=== PATIENT | male | born 1955 | race African-American/Black ===

== ENCOUNTER 2016-08-17 02:20 | Inpatient (IN) | payer MEDICAID ==
[~2016-08-17] VITALS: Ht 170.2 cm; Wt 52.8 kg
[2016-08-17] VITALS (26 sets, daily range): BP systolic 94–140; BP diastolic 27–91
[2016-08-17 03:17] LABS: CONDITION Y; DEFINITIVE SEE PRINTOUT; Mean Corpuscular Hemoglobin 37.6 pg (28.0-32.0); Mean Corpuscular Hgb Conc. 33.5 g/dL (32.0-36.0); Mean Corpuscular Volume 112.4 fL (80.0-100.0); Mean Platelet Volume 11.7 fL (7.4-10.4); SUSPECT SEE PRINTOUT
[2016-08-17 03:21] LABS: Red Cell Distribution Width 27.6 % (11.6-16.0)
[2016-08-17 03:23] LABS: Hemoglobin 4.4 g/dL (13.5-17.5); Platelet Count (auto) 5 10^3/uL (140-450)
[2016-08-17 03:24] LABS: Metamyelocytes % 0; Promyelocytes % 0; Reactive Lymphocytes 0
[2016-08-17 03:28] LABS: Chloride 106 mmol/L (98-107); Potassium 5.3 mmol/L (3.5-5.1); Sodium 144 mmol/L (136-145)
[2016-08-17 03:41] LABS: Myelocytes % 1
[2016-08-17 03:43] LABS: Anisocytosis Marked; Hypersegmented Neutrophils Present; Large Platelets FEW; Platelet Estimate Marked
[2016-08-17 03:44] LABS: Burr Cells FEW; Macrocytosis Marked; Ovalocytes FEW; Schistocytes FEW
[2016-08-17 03:48] LABS: Albumin 2.3 g/dL (3.4-5.0); Anion Gap 20 (5-15); BUN/Creatinine Ratio 22.9; Blood Urea Nitrogen 58 mg/dL (7-18); Carbon Dioxide 18 mmol/L (21-32); GFR African American 33 mL/min; GFR Non-African American 27 mL/min; Glucose 107 mg/dL (74-106)
[2016-08-17 03:55] LABS: Alkaline Phosphatase 105 U/L (45-117); Bilirubin, Total 0.9 mg/dL (0.2-1.0); Total Protein 6.3 g/dL (6.4-8.2)
[2016-08-17 03:57] LABS: Aspartate Aminotransferase 1108 U/L (15-37)
[2016-08-17 04:26] LABS: Amylase 128 U/L (25-115)
[2016-08-17 04:44] LABS: Lactic Acid w/Reflex 5.2 mmol/L (0.4-2.0)
[2016-08-17 04:47] LABS: Urine Bilirubin Negative (Negative); Urine Color Yellow (Yellow); Urine Glucose Normal (Normal); Urine Hyaline Cast FEW /lpf (0 - 2); Urine Ketone TRACE (Negative); Urine Mucus FEW (None Seen); Urine Nitrite Negative (Negative); Urine RBC 9 /hpf (0 - 3); Urine Squamous Epithelial Cell FEW /hpf (<5); Urine Urobilinogen Normal (Negative); Urine pH 5.5 (5.0-8.0)
[2016-08-17 04:51] LABS: Urine Blood 2+ /uL (Negative)
[2016-08-17] MEDS ORDERED: cefTRIAXone 1GM/50ML D5W 50 ML IV ONE (05:15)
[2016-08-17] MEDS ORDERED: NOREPINEPHRINE BITARTRATE 250 ML IV SCH (05:15)
[2016-08-17] MEDS ORDERED: SODIUM CHLORIDE 0.9% 1,000 ML IV ONE (05:15)
[2016-08-17] MEDS ORDERED: FUROSEMIDE 20 MG/2 ML VIAL IV ONE (05:15)
[2016-08-17 05:17] LABS: REFLEX LACTIC ACID YES OR NO YES
[2016-08-17] MEDS ORDERED: PIPERACILLIN-TAZOB 3.375GM 100 ML IV ONE (07:00)
[2016-08-17] MEDS ORDERED: SODIUM CHLORIDE 0.9% 500 ML IV ONE (07:00)
[2016-08-17 07:24] LABS: Allen Test Yes; Base Excess -2.9 mmol/L (-2.0-2.0); Blood 02Sat 94.3 % (96-100); Blood MetHb 0.3 % (0.0-1.5); HCO3 23.2 mmol/L (22-26.0); HHb 5.6 % (0.0-5.0); MODE NASAL CANNULA; O2Hb 92.1 % (94.0-97.0); PCO2 48.9 mmHg (35.0-45.0); PCO2(T) 48.9 mmHg (35.0-45.0); PO2 99.4 mmHg (80.0-100.0); PO2(T) 99.4 mmHg (80.0-100.0); Sample Type Arterial; pH 7.294 (7.350-7.450)
[2016-08-17 08:49] LABS: B-Type Natriuretic Peptide 1048.78 pg/mL (0-100)
[2016-08-17 08:50] LABS: Temperature: 24.3 C (20.0-25.0)
[2016-08-17] MEDS: NOREPINEPHRINE BITARTRATE 250 ML IV SCH (09:00)
[2016-08-17] MEDS ORDERED: VANCOMYCIN PER PHARMACY 0 MG IV SCH (09:00)
[2016-08-17] MEDS ORDERED: NITROGLYCERIN 0.4 MG SL TAB SL PRN (09:15)
[2016-08-17] MEDS ORDERED: MORPHINE SULF INJ 2 MG/ML SYRINGE 1ML IV PRN (09:15)
[2016-08-17] MEDS: SODIUM CHLORIDE 0.9% 1,000 ML IV SCH (09:38)
[2016-08-17] MEDS ORDERED: ENOXAPARIN SOD 30 MG/0.3 ML SYRINGE SC SCH (10:00)
[2016-08-17] MEDS ORDERED: ENOXAPARIN SOD 40 MG/0.4 ML SYRINGE SC SCH (10:00)
[2016-08-17] MEDS ORDERED: VANCOMYCIN 1GM/250ML D5W 250 ML IV ONE (10:00)
[2016-08-17 22:09] LABS: Basophils # (auto) 0 uL; Basophils % (auto) 0.1 % (0.0-2.0); CONDITION Y; Eosinophils # (auto) 0 uL; Hematocrit 32.3 % (41.0-53.0); Hemoglobin 11.1 g/dL (13.5-17.5); Lymphocytes # (auto) 0.3 uL; Lymphocytes % (auto) 14.3 % (10.0-50.0); Mean Corpuscular Hemoglobin 33.2 pg (28.0-32.0); Mean Corpuscular Hgb Conc. 34.5 g/dL (32.0-36.0); Mean Corpuscular Volume 96.2 fL (80.0-100.0); Mean Platelet Volume 7.6 fL (7.4-10.4); Monocytes # (auto) 0.1 uL; Monocytes % (auto) 3.1 % (0.0-12.0); Neutrophils % (auto) 82.5 % (37.0-80.0); Nucleated Red Blood Cells % 2.7 %; Platelet Count (auto) 190 10^3/uL (140-450); SUSPECT SEE PRINTOUT; White Blood Cell 2.4 10^3/uL (4.4-10.8)
[2016-08-17] MEDS: MORPHINE SULF INJ 2 MG/ML SYRINGE 1ML IV PRN (22:13)
[2016-08-17] MEDS: ONDANSETRON HCL 4 MG/2 ML VIAL IV PRN (22:14)
[2016-08-18] VITALS (26 sets, daily range): BP systolic 97–155; BP diastolic 50–94
[2016-08-18] MEDS: SODIUM CHLORIDE 0.9% 1,000 ML IV SCH ×2 (01:56→19:04)
[2016-08-18 04:06] LABS: CONDITION Y; Hematocrit 32.7 % (41.0-53.0); Hemoglobin 11.3 g/dL (13.5-17.5); Mean Corpuscular Hgb Conc. 34.5 g/dL (32.0-36.0); Mean Corpuscular Volume 95.6 fL (80.0-100.0); Mean Platelet Volume 8.2 fL (7.4-10.4); Platelet Count (auto) 169 10^3/uL (140-450); Red Cell Distribution Width 17.4 % (11.6-16.0); SUSPECT SEE PRINTOUT; White Blood Cell 2.6 10^3/uL (4.4-10.8)
[2016-08-18 04:17] LABS: Metamyelocytes % 0; Myelocytes % 0; Promyelocytes % 0; Reactive Lymphocytes 0
[2016-08-18 04:27] LABS: Albumin 2.3 g/dL (3.4-5.0); BUN/Creatinine Ratio 27.4; Calcium 6.9 mg/dL (8.5-10.1); Potassium 4.3 mmol/L (3.5-5.1)
[2016-08-18 04:30] LABS: Bilirubin, Total 1.8 mg/dL (0.2-1.0); Total Protein 6.3 g/dL (6.4-8.2)
[2016-08-18 05:02] LABS: Hypersegmented Neutrophils Present; Large Platelets FEW; Platelet Estimate Adequa
[2016-08-18 05:03] LABS: Anisocytosis Marked; Macrocytosis Moderate
[2016-08-18] MEDS: cefTRIAXone 1GM/50ML D5W 50 ML IV SCH (05:08)
[2016-08-18] MEDS: MORPHINE SULF INJ 2 MG/ML SYRINGE 1ML IV PRN (06:04)
[2016-08-18] MEDS: ONDANSETRON HCL 4 MG/2 ML VIAL IV PRN (06:04)
[2016-08-18] MEDS: NOREPINEPHRINE BITARTRATE 250 ML IV SCH (09:00)
[2016-08-18] MEDS ORDERED: VANCOMYCIN 750 MG in D5W 5% 250 ML IV SCH (10:00)
[2016-08-18] MEDS ORDERED: GASTROGRAFIN 120 ML SOL ONE (15:34)
[2016-08-18] MEDS ORDERED: HALOPERIDOL LACTATE 5 MG/ML INJ VIAL IM ONE (22:00)
[2016-08-19] MEDS: cefTRIAXone 1GM/50ML D5W 50 ML IV SCH (04:31)
[2016-08-19 05:00] VITALS: BP 110/67
[2016-08-19 06:42] LABS: Basophils # (auto) 0 uL; Basophils % (auto) 0.3 % (0.0-2.0); CONDITION Y; Eosinophils # (auto) 0 uL; Eosinophils % (auto) 0.2 % (0.0-7.0); Hematocrit 35.7 % (41.0-53.0); Hemoglobin 12.1 g/dL (13.5-17.5); INR 1.49 (0.9-1.15); Lymphocytes # (auto) 0.8 uL; Lymphocytes % (auto) 32.2 % (10.0-50.0); Mean Corpuscular Hemoglobin 33.1 pg (28.0-32.0); Mean Corpuscular Hgb Conc. 33.8 g/dL (32.0-36.0); Mean Corpuscular Volume 97.8 fL (80.0-100.0); Mean Platelet Volume 9.1 fL (7.4-10.4); Monocytes # (auto) 0.2 uL; Monocytes % (auto) 6.7 % (0.0-12.0); Neutrophils # (auto) 1.4 uL; Neutrophils % (auto) 60.6 % (37.0-80.0); Partial Thromboplastin Time 35.1 sec (22.64-33.71); SUSPECT SEE PRINTOUT; White Blood Cell 2.4 10^3/uL (4.4-10.8)
[2016-08-19 06:47] LABS: Prothrombin Time 16.3 sec (9.37-12.3)
[2016-08-19 06:50] LABS: BUN/Creatinine Ratio 28.6; Calcium 7.2 mg/dL (8.5-10.1); Magnesium 1.6 mg/dL (1.6-2.6)
[2016-08-19] MEDS: NOREPINEPHRINE BITARTRATE 250 ML IV SCH (09:00)
[2016-08-19 09:19] VITALS: BP 113/94
[2016-08-19] MEDS: SODIUM CHLORIDE 0.9% 1,000 ML IV SCH (11:12)
[2016-08-19] MEDS ORDERED: ERTAPENEM 1GM IN NS 50 ML IV ONE (11:15)
[2016-08-19 12:02] LABS: Anisocytosis Marked
[2016-08-19 12:03] LABS: Burr Cells FEW; Tear Drop Cells FEW
[2016-08-19 12:04] LABS: Large Platelets FEW; Platelet Estimate Decreased
[2016-08-19 12:27] VITALS: BP 104/64
[2016-08-19 12:28] LABS: Platelet Count (auto) 88 10^3/uL (140-450)
[2016-08-19 16:46] VITALS: BP 143/81
[2016-08-19] MEDS: MORPHINE SULF INJ 2 MG/ML SYRINGE 1ML IV PRN (20:49)
[2016-08-19] MEDS ORDERED: Fibersource Hn 1 Liter GT SCH (22:00)
[2016-08-19 22:23] VITALS: BP 109/80
[2016-08-20 06:21] VITALS: BP 115/82
[2016-08-20] MEDS: SODIUM CHLORIDE 0.9% 1,000 ML IV SCH (06:45)
[2016-08-20 09:00] VITALS: BP 118/90
[2016-08-20] MEDS: ERTAPENEM 1GM IN NS 50 ML IV SCH (09:48)
[2016-08-20 10:42] LABS: CONDITION Y; DEFINITIVE SEE PRINTOUT; Hematocrit 37.4 % (41.0-53.0); Hemoglobin 12.4 g/dL (13.5-17.5); Mean Corpuscular Hemoglobin 32.9 pg (28.0-32.0); Mean Corpuscular Hgb Conc. 33.3 g/dL (32.0-36.0); Mean Corpuscular Volume 98.7 fL (80.0-100.0); Mean Platelet Volume 9.3 fL (7.4-10.4); Platelet Count (auto) 52 10^3/uL (140-450); Red Cell Distribution Width 18.5 % (11.6-16.0); SUSPECT SEE PRINTOUT; White Blood Cell 2.9 10^3/uL (4.4-10.8)
[2016-08-20 10:51] LABS: Metamyelocytes % 0; Myelocytes % 0; Promyelocytes % 0; Reactive Lymphocytes 0
[2016-08-20 11:28] LABS: Platelet Estimate Decreased
[2016-08-20 11:29] LABS: Anisocytosis Moderate; Ovalocytes FEW
[2016-08-20 11:31] LABS: Macrocytosis Moderate
[2016-08-20 12:58] VITALS: BP 120/87
[2016-08-20 17:14] VITALS: BP 117/68
[2016-08-20 22:00] VITALS: BP 115/69
[2016-08-20 22:20] VITALS: BP 115/69
[2016-08-21] VITALS (7 sets, daily range): BP systolic 118–133; BP diastolic 58–86
[2016-08-21 07:01] LABS: CONDITION Y; DEFINITIVE SEE PRINTOUT; Hematocrit 32.4 % (41.0-53.0); Hemoglobin 10.7 g/dL (13.5-17.5); Mean Corpuscular Hemoglobin 32.5 pg (28.0-32.0); Mean Corpuscular Hgb Conc. 33.1 g/dL (32.0-36.0); Mean Corpuscular Volume 98.3 fL (80.0-100.0); Mean Platelet Volume 9.3 fL (7.4-10.4); Platelet Count (auto) 40 10^3/uL (140-450); Red Cell Distribution Width 19.3 % (11.6-16.0); SUSPECT SEE PRINTOUT; White Blood Cell 2.9 10^3/uL (4.4-10.8)
[2016-08-21 07:09] LABS: Metamyelocytes % 0; Myelocytes % 0; Promyelocytes % 0; Reactive Lymphocytes 0
[2016-08-21 07:16] LABS: BUN/Creatinine Ratio 32.2; Calcium 7.6 mg/dL (8.5-10.1); Magnesium 1.8 mg/dL (1.6-2.6); Potassium 3.7 mmol/L (3.5-5.1)
[2016-08-21 08:13] LABS: Platelet Estimate Decreased
[2016-08-21 08:14] LABS: Anisocytosis Moderate
[2016-08-21] MEDS: ERTAPENEM 1GM IN NS 50 ML IV SCH (08:58)
[2016-08-21] MEDS ORDERED: methylPREDNISolone SOD SUCC 125 MG/2 ML VL IV ONE (15:15)
[2016-08-21] MEDS ORDERED: NITROFURANTOIN (MONO) 100 mg CAP PO ONE (15:15)
[2016-08-21] MEDS: NITROFURANTOIN (MONO) 100 mg CAP PO SCH (21:45)
[2016-08-21] MEDS: methylPREDNISolone SOD SUCC 125 MG/2 ML VL IV SCH (21:45)
[2016-08-21] MEDS: PANTOPRAZOLE 40 MG TAB PO SCH (21:45)
[2016-08-22 05:50] LABS: CONDITION Y; DEFINITIVE SEE PRINTOUT; Hemoglobin 11.7 g/dL (13.5-17.5); Mean Corpuscular Hemoglobin 32.7 pg (28.0-32.0); Mean Corpuscular Hgb Conc. 33.5 g/dL (32.0-36.0); Mean Corpuscular Volume 97.7 fL (80.0-100.0); Mean Platelet Volume 9.4 fL (7.4-10.4); Platelet Count (auto) 106 10^3/uL (140-450); Red Cell Distribution Width 18.3 % (11.6-16.0); SUSPECT SEE PRINTOUT
[2016-08-22 05:56] VITALS: BP 119/83
[2016-08-22] MEDS: methylPREDNISolone SOD SUCC 125 MG/2 ML VL IV SCH ×3 (06:01→21:46)
[2016-08-22 06:49] LABS: White Blood Cell 1.8 10^3/uL (4.4-10.8)
[2016-08-22 06:50] LABS: Metamyelocytes % 0; Myelocytes % 0; Promyelocytes % 0; Reactive Lymphocytes 0
[2016-08-22 09:00] VITALS: BP 146/80
[2016-08-22 09:22] LABS: Platelet Estimate Decreased
[2016-08-22 09:23] LABS: Anisocytosis Moderate; Burr Cells FEW
[2016-08-22] MEDS: PANTOPRAZOLE 40 MG TAB PO SCH ×2 (09:37→21:46)
[2016-08-22] MEDS: NITROFURANTOIN (MONO) 100 mg CAP PO SCH ×2 (09:37→21:47)
[2016-08-22] MEDS: ONDANSETRON HCL 4 MG/2 ML VIAL IV PRN (09:48)
[2016-08-22 11:58] VITALS: BP 142/86
[2016-08-22] MEDS ORDERED: CYANOCOBALAMIN (B-12) 1000 MCG/1 ML VIAL SUBCUT ONE (16:45)
[2016-08-22] MEDS ORDERED: PHYTONADIONE (VIT K)10 MG/ML 1ML VIAL SUBCUT ONE (16:45)
[2016-08-22] MEDS ORDERED: FILGRASTIM 480 MCG INJ VIAL SC ONE (16:45)
[2016-08-22 17:00] VITALS: BP 148/93
[2016-08-22 20:00] VITALS: BP 131/87
[2016-08-22 21:33] VITALS: BP 131/87
[2016-08-23] VITALS (7 sets, daily range): BP systolic 97–132; BP diastolic 58–89
[2016-08-23] MEDS: MORPHINE SULF INJ 2 MG/ML SYRINGE 1ML IV PRN ×2 (02:17→17:46)
[2016-08-23] MEDS: methylPREDNISolone SOD SUCC 125 MG/2 ML VL IV SCH ×2 (05:40→13:51)
[2016-08-23 06:35] LABS: BUN/Creatinine Ratio 36.1; Calcium 7.4 mg/dL (8.5-10.1); Potassium 3.5 mmol/L (3.5-5.1)
[2016-08-23] MEDS ORDERED: FILGRASTIM 300 MCG INJ VIAL SC SCH (10:00)
[2016-08-23] MEDS ORDERED: PHYTONADIONE (VIT K)10 MG/ML 1ML VIAL SUBCUT SCH (10:00)
[2016-08-23] MEDS: PANTOPRAZOLE 40 MG TAB PO SCH ×2 (10:10→21:49)
[2016-08-23] MEDS: NITROFURANTOIN (MONO) 100 mg CAP PO SCH ×2 (10:10→21:49)
[2016-08-23] MEDS: CYANOCOBALAMIN (B-12) 1000 MCG/1 ML VIAL SUBCUT SCH (10:11)
[2016-08-23] MEDS ORDERED: FUROSEMIDE 20 MG/2 ML VIAL IV ONE (13:36)
[2016-08-24] MEDS: ONDANSETRON HCL 4 MG/2 ML VIAL IV PRN (00:42)
[2016-08-24] MEDS: MORPHINE SULF INJ 2 MG/ML SYRINGE 1ML IV PRN ×2 (00:47→17:53)
[2016-08-24 05:00] VITALS: BP 114/77
[2016-08-24 06:46] LABS: CONDITION Y; DEFINITIVE SEE PRINTOUT; Hematocrit 33.7 % (41.0-53.0); Hemoglobin 11.2 g/dL (13.5-17.5); Mean Corpuscular Hemoglobin 32.6 pg (28.0-32.0); Mean Corpuscular Hgb Conc. 33.4 g/dL (32.0-36.0); Mean Corpuscular Volume 97.8 fL (80.0-100.0); Mean Platelet Volume 9.5 fL (7.4-10.4); Platelet Count (auto) 64 10^3/uL (140-450); Red Cell Distribution Width 18.2 % (11.6-16.0); SUSPECT SEE PRINTOUT; White Blood Cell 14.8 10^3/uL (4.4-10.8)
[2016-08-24 07:00] LABS: INR 1.34 (0.9-1.15); Partial Thromboplastin Time 32.1 sec (22.64-33.71)
[2016-08-24 07:02] LABS: Metamyelocytes % 0; Myelocytes % 0; Promyelocytes % 0; Reactive Lymphocytes 0
[2016-08-24 07:04] LABS: Prothrombin Time 14.7 sec (9.37-12.3)
[2016-08-24 09:56] VITALS: BP 120/72
[2016-08-24] MEDS: CYANOCOBALAMIN (B-12) 1000 MCG/1 ML VIAL SUBCUT SCH (10:00)
[2016-08-24 10:08] LABS: Platelet Estimate Decreased
[2016-08-24 10:09] LABS: Burr Cells FEW
[2016-08-24 10:10] LABS: Anisocytosis Moderate; Polychromasia Slight
[2016-08-24 10:11] LABS: Tear Drop Cells FEW
[2016-08-24] MEDS ORDERED: NITR-39 PO (11:18)
[2016-08-24] MEDS ORDERED: CYAN1TAB14 PO (11:18)
[2016-08-24] MEDS ORDERED: FERR-7 PO (11:18)
[2016-08-24] MEDS ORDERED: FAM20T PO (11:18)
[2016-08-24] MEDS: NITROFURANTOIN (MONO) 100 mg CAP PO SCH (11:47)
[2016-08-24] MEDS: PANTOPRAZOLE 40 MG TAB PO SCH (11:47)
[2016-08-24 13:08] VITALS: BP 129/60
[2016-08-24 17:52] VITALS: BP 118/79
== END 2016-08-24 20:22 | disposition home or self-care (01) | DRG 720 ==
LOC: ER 02:20 → TELE 02:21 → ICU WEST 08-18 10:20 → TELE-EAST 08-18 16:50 → TELE-CENTR 08-19 05:40
PROVIDERS: ADMIT Internal Medicine; ATTEND Internal Medicine
PROC: 0W993ZZ Drainage of Right Pleural Cavity, Percutaneous Approach (ICD-10-PCS; principal; 2016-08-17)
PROC: 30233R1 Transfusion of Nonautologous Platelets into Peripheral Vein, Percutaneous Approach (ICD-10-PCS; 2016-08-17)
PROC: 30233N1 Transfusion of Nonautologous Red Blood Cells into Peripheral Vein, Percutaneous Approach (ICD-10-PCS; 2016-08-17)
DX: A41.9 Sepsis, unspecified organism (principal); E43 Unspecified severe protein-calorie malnutrition; G93.41 Metabolic encephalopathy; D61.818 Other pancytopenia; K94.23 Gastrostomy malfunction; I31.3 Pericardial effusion (noninflammatory); I50.9 Heart failure, unspecified; I13.0 Hypertensive heart and chronic kidney disease with heart failure and stage 1 through stage 4 chronic kidney disease, or unspecified chronic kidney disease; E53.8 Deficiency of other specified B group vitamins; Z99.81 Dependence on supplemental oxygen; N18.3 Chronic kidney disease, stage 3 (moderate); J44.9 Chronic obstructive pulmonary disease, unspecified; N39.0 Urinary tract infection, site not specified; B96.89 Other specified bacterial agents as the cause of diseases classified elsewhere; I25.10 Atherosclerotic heart disease of native coronary artery without angina pectoris; E46 Unspecified protein-calorie malnutrition; Z68.1 Body mass index [BMI] 19.9 or less, adult; J98.11 Atelectasis; Z86.73 Personal history of transient ischemic attack (TIA), and cerebral infarction without residual deficits; E87.5 Hyperkalemia; Z74.01 Bed confinement status; I25.2 Old myocardial infarction; Z88.6 Allergy status to analgesic agent; Z71.89 Other specified counseling
CPT/HCPCS: 10022; 36415; 36430; 36600; 51702; 70450; 71010; 74020; 74176; 76604; 76942; 80048; 80053; 80074; 80202; 80307; 80320; 81001; 82150; 82805; 83010; 83605; 83615; 83690; 83735; 83880; 84100; 84443; 84484; 85007; 85025; 85027; 85379; 85384; 85610; 85730; 86141; 86850; 86900; 86901; 86920; 87040; 87081; 87086; 87088; 87186; 87493; 92610; 93005; 93306; 93886; 96365; 96367; 96372; 96375; 97110; 97530; 99291; J0696; J1335; J1442; J2405; J2543; J3430; J7060